=== PATIENT | female | born 1980 | race Caucasian/White ===

== ENCOUNTER → 2017-07-04 | Outpatient (CLI) | payer BC ==
[~2017-07-04] MED LIST: ATORVASTATIN; CEPH500 PO; CITALOPRAM; CONEST.9; HYDACE5; HYDCOR10; HYDCOR10 PO; HYDPAM50 PO; HYDROCORTISONE; LEVOTHYROXINE; LEVSOD100; MEDR10; MINO100 PO; OXYACE5T PO; PRED20 PO; PROM25 PO; RXHYDACE PO; RXPRED10; SULTRIDS PO
== END ==
LOC: OLS 17:04
DX: K30 Functional dyspepsia (principal)
CPT/HCPCS: 87338

== ENCOUNTER 2019-05-13 20:17 | Emergency (ER) | payer BC ==
[~2019-05-13] VITALS: Ht 162.6 cm; Wt 86.2 kg
[2019-05-13] MEDS ORDERED: NORDITROPI5 MG/1.5 M SC (20:35)
[2019-05-13] MEDS ORDERED: XOLAIR150 MG/1 M SC (20:36)
== END 2019-05-13 22:08 | disposition home or self-care (01) ==
LOC: ER 20:17
DX: S61.210A Laceration without foreign body of right index finger without damage to nail, initial encounter (principal); E78.5 Hyperlipidemia, unspecified; Z23 Encounter for immunization; Z88.1 Allergy status to other antibiotic agents; Z88.2 Allergy status to sulfonamides; Z88.8 Allergy status to other drugs, medicaments and biological substances; Z91.048 Other nonmedicinal substance allergy status; Z79.899 Other long term (current) drug therapy; W26.8XXA Contact with other sharp object(s), not elsewhere classified, initial encounter
CPT/HCPCS: 90471; 90714; 99282-25

== ENCOUNTER → 2021-06-14 | Outpatient (CLI) | payer BC ==
[~2021-06-14] MED LIST changes: +NORDITROPI5 MG/1.5 M SC; +XOLAIR150 MG/1 M SC
== END ==
LOC: LAB 11:45 → LAB SHORT 11:45
DX: M79.605 Pain in left leg (principal)
CPT/HCPCS: 85379

== ENCOUNTER → 2021-07-12 | Outpatient (CLI) | payer BC | END | disposition home or self-care (01) | LOC: LAB 15:09 → LAB SHORT 15:09 | DX: L02.01 Cutaneous abscess of face (principal) | CPT/HCPCS: 87070; 87205 ==

== ENCOUNTER → 2021-11-04 | Outpatient (CLI) | payer BC ==
[2021-11-04 16:55] LABS: BASOPHILS ABSOLUTE AUTO 0.04 K/mm3 (0.00-0.23); BASOPHILS PERCENT AUTO 1 % (0-2); EOSINOPHILS ABSOLUTE AUTO 0.27 K/mm3 (0.00-0.68); EOSINOPHILS PERCENT AUTO 4 % (0-6); Hematocrit 39.1 % (33.0-51.0); Hemoglobin 13.5 g/dL (11.5-16.0); IMMATURE GRAN ABSOLUTE AUTO 0.02 K/mm3 (0.00-0.10); IMMATURE GRAN PERCENT AUTO 0 % (0-1); LYMPHOCYTES ABSOLUTE AUTO 1.89 K/mm3 (0.84-5.20); LYMPHOCYTES PERCENT AUTO 30 % (21-46); MONOCYTES ABSOLUTE AUTO 0.45 K/mm3 (0.16-1.47); MONOCYTES PERCENT AUTO 7 % (4-13); Mean Corpuscular HGB 29.3 pg (26.0-34.0); Mean Corpuscular HGB Conc 34.5 g/dL (31.5-36.5); Mean Corpuscular Volume 85 fL (80-100); NEUTROPHILS ABSOLUTE AUTO 3.58 K/mm3 (1.96-9.15); NEUTROPHILS PERCENT AUTO 57 % (41-73); RDW Coefficient Variation 11.7 % (11.7-14.2); RDW Standard Deviation 35.8 fL (35.1-46.3); Red Blood Cell Count 4.61 M/mm3 (3.80-5.20); White Blood Cell Count 6.25 K/mm3 (4.00-11.30)
[2021-11-04 17:02] LABS: Albumin, Blood 4.1 g/dL (3.4-5.0); Albumin/Globulin Ratio 1.1 (0.8-1.8); Bilirubin, Total 0.4 mg/dL (0.1-1.0); Calcium, Blood 9.4 mg/dL (8.5-10.1); Creatinine, Blood 0.84 mg/dL (0.40-1.00); Globulin, Blood 3.9 g/dL (2.2-4.0); Potassium, Blood 4.2 mmol/L (3.5-5.5)
[2021-11-04 17:44] LABS: Mean Platelet Volume 10.6 fL (9.1-12.4); Platelet Count 182 K/mm3 (150-400)
== END | disposition home or self-care (01) ==
LOC: LAB SHORT 16:44 → LAB 16:44
PROVIDERS: Chiropractor
DX: R07.89 Other chest pain (principal)
CPT/HCPCS: 80053; 84484; 85025; 85379

== ENCOUNTER 2025-04-06 20:17 | Emergency (ER) | payer BC ==
[~2025-04-06] VITALS: Ht 162.6 cm; Wt 83.9 kg
[2025-04-06 20:20] VITALS: BP 145/92
== END 2025-04-06 23:26 | disposition home or self-care (01) ==
LOC: ER 20:17
DX: K13.79 Other lesions of oral mucosa (principal); E78.5 Hyperlipidemia, unspecified; E23.0 Hypopituitarism; Z87.730 Personal history of (corrected) cleft lip and palate; Z88.1 Allergy status to other antibiotic agents; Z88.2 Allergy status to sulfonamides; Z91.048 Other nonmedicinal substance allergy status; Z79.890 Hormone replacement therapy; Z79.899 Other long term (current) drug therapy
CPT/HCPCS: 70486; 99283-25